=== PATIENT | female | born 1995 | race Caucasian/White ===

== ENCOUNTER 2018-05-07 20:35 | Emergency (ER) | payer SELFPAY ==
[~2018-05-07 20:35] MED LIST: NO HOME MEDICATIONS
[2018-05-07] MEDS ORDERED: SERTRALINE HYDR25 MG PO (20:50)
[2018-05-07 22:46] LABS: URINE APPEARANCE CLEAR; URINE BILIRUBIN NEGATIVE (NEGATIVE); URINE BLOOD 50 ery/uL (NEGATIVE); URINE COLOR YELLOW; URINE GLUCOSE NEGATIVE (NEGATIVE); URINE KETONE NEGATIVE (NEGATIVE); URINE LEUKOCYTE ESTERASE NEGATIVE (NEGATIVE); URINE MUCUS PRESENT (NOT PRESENT); URINE NITRATE NEGATIVE (NEGATIVE); URINE PROTEIN(semi-quant) TRACE mg/dL (NEGATIVE); URINE UROBILINOGEN NORMAL (NORMAL)
[2018-05-07 23:30] VITALS: BP 108/70
== END 2018-05-07 23:34 | disposition home or self-care (01) ==
LOC: ED 20:35
PROVIDERS: Nurse Practitioner Family
DX: S20.222A Contusion of left back wall of thorax, initial encounter (principal); S20.221A Contusion of right back wall of thorax, initial encounter; S30.0XXA Contusion of lower back and pelvis, initial encounter; S70.02XA Contusion of left hip, initial encounter; S70.01XA Contusion of right hip, initial encounter; S83.92XA Sprain of unspecified site of left knee, initial encounter; W10.8XXA Fall (on) (from) other stairs and steps, initial encounter; Y92.009 Unspecified place in unspecified non-institutional (private) residence as the place of occurrence of the external cause; R42 Dizziness and giddiness; R40.2412 Glasgow coma scale score 13-15, at arrival to emergency department
CPT/HCPCS: J1885

== ENCOUNTER 2020-01-07 07:33 | Emergency (ER) | payer SELFPAY ==
[~2020-01-07] VITALS: Ht 162.6 cm; Wt 77.1 kg
[~2020-01-07 07:33] MED LIST changes: +SERTRALINE HYDR25 MG PO
[2020-01-07 08:41] LABS: EOS # 0.1 (0.04-0.40); EOS % 1.7 % (1.0-5.0); HEMATOCRIT 43.1 % (37.0-47.0); HEMOGLOBIN 14.1 g/dL (12.5-16.0); LYMPH# 1.2 (1.50-4.00); MEAN CELL VOLUME 88 fl (78-100); MEAN CORPUSCULAR HEMOGLOBIN 29 pg (27-31); MEAN CORPUSCULAR HGB CONC 33 g/dL (33-37); MONO # 0.7 (0.20-0.80); NEU # 5.8 (1.40-6.50); PLATELET COUNT 264 K/mm3 (130-400); RED CELL DISTRIBUTION WIDTH 13.7 % (11.5-14.5); WHITE BLOOD COUNT 7.8 K/mm3 (4.8-10.8)
[2020-01-07 08:51] LABS: ALBUMIN 4.4 g/dL (3.5-5.0); POTASSIUM 3.7 mmol/L (3.5-5.1)
[2020-01-07 08:52] LABS: CALCIUM 9.7 mg/dL (8.3-10.5)
[2020-01-07 08:53] LABS: TOTAL PROTEIN 7.3 g/dL (6.4-8.3)
[2020-01-07 08:55] LABS: TOTAL BILIRUBIN 0.3 mg/dL (0.2-1.2)
[2020-01-07] MEDS ORDERED: ZOFRAN ODT4 MG PO (09:57)
[2020-01-07 10:15] VITALS: BP 106/68
== END 2020-01-07 10:15 | disposition home or self-care (01) ==
LOC: ED 07:33
PROVIDERS: Physician Assistant
DX: K52.9 Noninfective gastroenteritis and colitis, unspecified (principal); M75.21 Bicipital tendinitis, right shoulder; Z85.820 Personal history of malignant melanoma of skin
CPT/HCPCS: J1885

== ENCOUNTER 2020-08-17 10:10 | Emergency (ER) | payer SELFPAY ==
[~2020-08-17] VITALS: Ht 162.6 cm; Wt 77.3 kg
[~2020-08-17 10:10] MED LIST changes: +ZOFRAN ODT4 MG PO
[2020-08-17] MEDS ORDERED: EPIPEN 2-PAK1 MG/ML MR (10:33)
[2020-08-17] MEDS ORDERED: FLONASE ALLERG9.9 ML NS (11:27)
[2020-08-17 11:44] VITALS: BP 121/77
== END 2020-08-17 11:46 | disposition home or self-care (01) ==
LOC: ED 10:10
DX: J30.2 Other seasonal allergic rhinitis (principal); F17.200 Nicotine dependence, unspecified, uncomplicated; Z85.828 Personal history of other malignant neoplasm of skin; Z88.9 Allergy status to unspecified drugs, medicaments and biological substances; Z79.899 Other long term (current) drug therapy

== ENCOUNTER 2021-08-11 22:45 | Emergency (ER) | payer SELFPAY ==
[~2021-08-11] VITALS: Ht 162.6 cm; Wt 81.7 kg
[~2021-08-11 22:45] MED LIST changes: +EPIPEN 2-PAK1 MG/ML MR; +FLONASE ALLERG9.9 ML NS
[2021-08-12 00:32] VITALS: BP 116/75
== END 2021-08-12 00:35 | disposition home or self-care (01) ==
LOC: ED 22:45
DX: S93.402A Sprain of unspecified ligament of left ankle, initial encounter (principal); M79.672 Pain in left foot; W10.8XXA Fall (on) (from) other stairs and steps, initial encounter; Y92.009 Unspecified place in unspecified non-institutional (private) residence as the place of occurrence of the external cause
CPT/HCPCS: L4396